=== PATIENT | female | born 1945 | race Caucasian/White ===

== ENCOUNTER → 2017-03-06 | Outpatient (CLI) | payer MEDICARE, MEDICAID | END | disposition short-term general hospital (02) | LOC: CLCARD 08:58 | DX: I44.7 Left bundle-branch block, unspecified (principal); I49.5 Sick sinus syndrome; I44.0 Atrioventricular block, first degree; R00.1 Bradycardia, unspecified; I12.9 Hypertensive chronic kidney disease with stage 1 through stage 4 chronic kidney disease, or unspecified chronic kidney disease; N18.9 Chronic kidney disease, unspecified; R94.31 Abnormal electrocardiogram [ECG] [EKG]; Z95.0 Presence of cardiac pacemaker ==